=== PATIENT | female | born 1965 | race African-American/Black ===

== ENCOUNTER 2017-03-27 15:33 | Emergency (ER) | payer BC, OTHER, SELFPAY ==
[2017-03-27] MEDS ORDERED: Azithromycin 250 MG TAB ONE (17:09)
[2017-03-27] MEDS ORDERED: predniSONE 20 MG TAB ONE (17:09)
== END 2017-03-27 17:45 | disposition home or self-care (01) ==
LOC: ERS 15:33
DX: J45.901 Unspecified asthma with (acute) exacerbation (principal); E78.5 Hyperlipidemia, unspecified; E11.9 Type 2 diabetes mellitus without complications; I10 Essential (primary) hypertension; F41.9 Anxiety disorder, unspecified
CPT/HCPCS: 94640; J7506; J7620

== ENCOUNTER 2017-07-20 08:39 | Outpatient (CLI) | payer BC | END 2017-07-20 08:40 | disposition home or self-care (01) | LOC: BICMAMMO 08:39 | PROVIDERS: ATTEND Family Medicine | DX: Z12.31 Encounter for screening mammogram for malignant neoplasm of breast (principal) | CPT/HCPCS: 77063; 77067 ==

== ENCOUNTER 2017-08-19 08:12 | Day surgery (SDC) | payer BC ==
[2017-08-19] MEDS ORDERED: Midazolam HCl 2 mg/2 ml Vial ONE ×2 (08:52→09:05)
[2017-08-19] MEDS ORDERED: Fentanyl 100 MCG/2 ML VIAL ONE ×3 (08:52→11:10)
[2017-08-19] MEDS ORDERED: Levofloxacin 500 mg/D5W 100 ml Premix Bag ONE (09:06)
[2017-08-19] MEDS ORDERED: Clindamycin/D5W 900 mg/50 ml Premix Bag ONE ×2 (09:06→10:23)
[2017-08-19 09:47] LABS: Anion Gap 16 mmol/L (10-20); BUN (Urea Nitrogen) 13 mg/dL (9.8-20.1); Calc. Creatinine Clearance 0 mL/min (70-130); Calcium 8.9 mg/dL (7.8-10.44); Carbon Dioxide 23 mmol/L (22-29); Chloride 102 mmol/L (98-107); Estimated GFR-MDRD Greater than 90; Glucose 167 mg/dL (70-105); Potassium 3.4 mmol/L (3.5-5.1); Sodium 138 mmol/L (136-145)
[2017-08-19] MEDS ORDERED: Thrombin 5000 UNITS/5 ML VIAL ONE (10:06)
[2017-08-19] MEDS ORDERED: PHENYLEPHRINE-NS 100 MCG/ML 10 ML SYRINGE ONE ×2 (10:08→11:34)
[2017-08-19] MEDS ORDERED: Ondansetron HCl/PF 4 MG/2 ML Vial ONE (10:08)
[2017-08-19] MEDS ORDERED: PROPOFOL 200 MG/20 ML VIAL ONE (10:08)
[2017-08-19] MEDS ORDERED: Lidocaine 1% PF 5 ML VIAL ONE (10:08)
[2017-08-19] MEDS ORDERED: Glycopyrrolate 0.2 MG/ML 5 ML SYRINGE ONE (10:08)
[2017-08-19] MEDS ORDERED: HYDROmorphone 0.5 MG/0.5 ML SYRINGE ONE (11:45)
--- NOTE | 2017-08-19 12:07 | OP ---
DATE OF PROCEDURE: 08/19/2017 SURGEON: [place] Trivedi M.D. DOUBLE BOTTOM DRIVER: Jm Ignacio PA-C INDICATION: Pain. DIAGNOSIS: Cervical radiculopathy. PROCEDURE: Anterior cervical discectomy and fusion C6-7. ANESTHESIA: General. TECHNIQUE: The patient was brought into the operating room and placed under general anesthesia. She was placed on the table in supine position. A transverse incision was planned over the lateral aspe ct of the neck on the right. After prepping and draping and after an appropriate operative pause, th e incision was created. The underlying platysma muscle identified and incised. A blunt tissue plane anterior to the sternocleidomastoid muscle was used to gain access to the prevertebral space. A katie f-retaining retractor was placed in the wound for optimal exposure. After confirming the appropriate levels, an annulotomy was performed at the C6-7 disk space. All disk material as well as anterior a nd posterior osteophytes were removed. After decompressing the segment, a 6 mm lordotic PEEK cage pa cked with allograft and autograft material was placed in the interbody space. An anterior cervical p late was then fashioned to the front of the spine and secured with a total of four screws. Midline a nd lateral structures were then inspected and found to be free from significant trauma. The wound wa s irrigated. Hemostasis was maintained throughout. The wound was then closed in anatomic layers and a pressure dressing was applied. There were no known procedural complications.
[2017-08-19] MEDS ORDERED: Promethazine HCl 25 MG/ML VIAL ONE ×2 (12:36→13:52)
[2017-08-19] MEDS ORDERED: HYDROcodone/Acetaminophen 5/325 mg Tablet ONE (13:52)
== END 2017-08-19 15:40 | disposition home or self-care (01) ==
LOC: SDC 08:12
PROVIDERS: ATTEND Neurological Surgery
PROC: 0RT30ZZ Resection of Cervical Vertebral Disc, Open Approach (ICD-10-PCS; principal; 2017-08-19)
PROC: 0RG10A0 Fusion of Cervical Vertebral Joint with Interbody Fusion Device, Anterior Approach, Anterior Column, Open Approach (ICD-10-PCS; principal; 2017-08-19)
DX: M54.12 Radiculopathy, cervical region (principal); Z88.0 Allergy status to penicillin; Z88.6 Allergy status to analgesic agent; Z79.899 Other long term (current) drug therapy; Z79.84 Long term (current) use of oral hypoglycemic drugs
CPT/HCPCS: 36416; 76001; 80048; 93005; 93010; 96374; C1713; C1776; J1170; J1956; J2001; J2250; J2405; J2550; J2704; J3010; J3490

== ENCOUNTER 2017-10-21 14:19 | Outpatient (CLI) | payer OTHER | END 2017-10-21 14:20 | disposition home or self-care (01) | LOC: BICRAD 14:19 | PROVIDERS: ATTEND Neurological Surgery | DX: M47.22 Other spondylosis with radiculopathy, cervical region (principal); Z98.890 Other specified postprocedural states | CPT/HCPCS: 72040 ==

== ENCOUNTER 2018-02-08 13:06 | Outpatient (CLI) | payer OTHER ==
--- NOTE | 2018-02-08 14:48 | RAD ---
CHEST PA AND LATERAL: History: 52-year-old female with history of severe persistent asthma with exacerbation, cough for four weeks. Comparison: 10-09-17 FINDINGS: Anterior cervical fusion changes lower cervical spine. Right hemidiaphragm elevation, stable. No conf luent pneumonia, overt edema, or pleural effusion. IMPRESSION: No acute intrathoracic disease. Stable right hemidiaphragm elevation. No evidence for pneumonia. POS: SAE
== END 2018-02-08 13:07 | disposition home or self-care (01) ==
LOC: BICRAD 13:06
DX: J45.51 Severe persistent asthma with (acute) exacerbation (principal); Q79.1 Other congenital malformations of diaphragm
CPT/HCPCS: 71046

== ENCOUNTER 2018-05-16 16:44 | Emergency (ER) | payer OTHER, SELFPAY ==
[~2018-05-16 16:44] MED LIST: ISOVUE-370 76%-LOCM 1 ML ONE
[2018-05-16] MEDS ORDERED: Morphine 4 MG/ML VIAL ONE (18:53)
[2018-05-16] MEDS ORDERED: Ondansetron PF 4 MG/2 ML Vial ONE (18:53)
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
== END 2018-05-16 19:57 | disposition home or self-care (01) ==
LOC: ERS 16:44
DX: M54.2 Cervicalgia (principal); E11.9 Type 2 diabetes mellitus without complications; F41.9 Anxiety disorder, unspecified; J45.909 Unspecified asthma, uncomplicated; I10 Essential (primary) hypertension; Z79.84 Long term (current) use of oral hypoglycemic drugs; Z79.899 Other long term (current) drug therapy; V89.0XXA Person injured in unspecified motor-vehicle accident, nontraffic, initial encounter
CPT/HCPCS: 70450; 70498; 96374; 96375; J2270; J2405; Q9966

== ENCOUNTER 2018-08-28 16:16 | Emergency (ER) | payer SELFPAY ==
--- NOTE | 2018-08-28 16:55 | RAD ---
THREE VIEWS RIGHT WRIST: Comparison: None. History: Right wrist pain. FINDINGS: Three views of the right wrist shows no evidence of acute fracture or dislocation. Mild dorsal soft t issue swelling is seen. IMPRESSION: No evidence of acute osseous abnormality. POS: C
[2018-08-28] MEDS ORDERED: Acetaminophen 325 MG TAB ONE (17:46)
--- NOTE | 2018-08-28 18:32 | RAD ---
FOUR VIEWS RIGHT ELBOW: Comparison: None. History: Fall with elbow pain. FINDINGS: Four views of the right elbow shows no evidence of acute fracture or dislocation. No degenerative madeline nges are seen. No elbow effusion is seen. IMPRESSION: Unremarkable exam. POS: C
== END 2018-08-28 18:57 | disposition home or self-care (01) ==
LOC: ERS 16:16
DX: M25.432 Effusion, left wrist (principal); M25.531 Pain in right wrist; E78.5 Hyperlipidemia, unspecified; I10 Essential (primary) hypertension; J45.909 Unspecified asthma, uncomplicated; F41.9 Anxiety disorder, unspecified; E11.9 Type 2 diabetes mellitus without complications; Z79.51 Long term (current) use of inhaled steroids; Z79.899 Other long term (current) drug therapy; W19.XXXA Unspecified fall, initial encounter

== ENCOUNTER 2019-02-11 14:28 | Emergency (ER) | payer OTHER, SELFPAY ==
--- NOTE | 2019-02-11 15:12 | RAD ---
EXAM: XR Knee Lt 4 View STANDARD PROVIDED CLINICAL HISTORY: Pain FINDINGS: There is no evidence for fracture or other acute osseous abnormality. Alignment appears anatomic. Mercedes nt spaces appear preserved. IMPRESSION: No evidence for an acute osseous abnormality. If there is persistent clinical concern, conservative m anagement and follow-up imaging advised.
[2019-02-11 16:09] LABS: Bilirubin Negative (Negative); Blood, Urine Negative (Negative); Clarity Clear (Clear); Glucose, Urine (Dipstick) Normal (Negative); Leukocyte Negative Leu/uL (Negative); Nitrite Negative (Negative); Protein, Urine (Dipstick) Negative (Neg-Trace); Urobilinogen Normal mg/dL (Less than 2)
== END 2019-02-11 16:37 | disposition home or self-care (01) ==
LOC: ERS 14:28
DX: M25.562 Pain in left knee (principal); R30.0 Dysuria; F41.9 Anxiety disorder, unspecified; E11.9 Type 2 diabetes mellitus without complications; E78.5 Hyperlipidemia, unspecified; I10 Essential (primary) hypertension; J45.909 Unspecified asthma, uncomplicated; Z79.899 Other long term (current) drug therapy; Z79.84 Long term (current) use of oral hypoglycemic drugs; Z87.891 Personal history of nicotine dependence
CPT/HCPCS: 81003

== ENCOUNTER 2019-03-20 21:12 | Emergency (ER) | payer SELFPAY ==
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
== END 2019-03-20 23:22 | disposition home or self-care (01) ==
LOC: ERS 21:12
DX: S39.012A Strain of muscle, fascia and tendon of lower back, initial encounter (principal); S16.1XXA Strain of muscle, fascia and tendon at neck level, initial encounter; G43.909 Migraine, unspecified, not intractable, without status migrainosus; E11.9 Type 2 diabetes mellitus without complications; E78.5 Hyperlipidemia, unspecified; I10 Essential (primary) hypertension; J45.909 Unspecified asthma, uncomplicated; F41.9 Anxiety disorder, unspecified; Z87.891 Personal history of nicotine dependence; Z79.51 Long term (current) use of inhaled steroids; Z79.84 Long term (current) use of oral hypoglycemic drugs; Z79.899 Other long term (current) drug therapy; V48.5XXA Car driver injured in noncollision transport accident in traffic accident, initial encounter
CPT/HCPCS: 72040; 72100

== ENCOUNTER 2019-04-18 13:36 | Emergency (ER) | payer SELFPAY ==
[2019-04-18 15:37] LABS: ALT (SGPT) 41 U/L (8-55); AST (SGOT) 37 U/L (5-34); Albumin 4.4 g/dL (3.5-5.0); Alkaline Phosphatase 50 U/L (40-110); Anion Gap 12 mmol/L (10-20); BUN (Urea Nitrogen) 9 mg/dL (9.8-20.1); Bilirubin, Total 0.4 mg/dL (0.2-1.2); Calc. Creatinine Clearance 0 mL/min (70-130); Carbon Dioxide 29 mmol/L (22-29); Chloride 103 mmol/L (98-107); Estimated GFR-MDRD Greater than 90; Globulin 2.5 g/dL (2.4-3.5); Glucose 103 mg/dL (70-105); Lipase 12 U/L (8-78); Potassium 3.9 mmol/L (3.5-5.1); Protein, Total 6.9 g/dL (6.0-8.3); Sodium 140 mmol/L (136-145)
[2019-04-18 15:50] LABS: Hemoglobin 13.1 g/dL (12.0-16.0); Mean Corpuscular HGB CONC 33.9 g/dL (32.0-36.0); Mean Corpuscular Hemoglobin 32.1 pg (27.0-31.0); Mean Corpuscular Volume 94.7 fL (78.0-98.0); Mean Platelet Volume 8.6 fL (7.4-10.4); Platelet Count 231 thou/uL (130-400); RBC Distribution Width 11.9 % (11.5-14.5); Red Blood Cell (RBC) Count 4.08 mill/uL (4.20-5.40); White Blood Cell (WBC) Count 6.2 thou/uL (4.8-10.8)
[2019-04-18 15:51] LABS: Bilirubin Negative (Negative); Blood, Urine Negative (Negative); Clarity Clear (Clear); Glucose, Urine (Dipstick) Normal (Negative); Leukocyte Negative Leu/uL (Negative); Nitrite Negative (Negative); Protein, Urine (Dipstick) Negative (Neg-Trace); Urobilinogen Normal mg/dL (Less than 2)
[2019-04-18 16:04] LABS: Eosinophils 2 % (0-10); Lymphocytes 43 % (21-51); MDiff Complete? YES; Monocytes 4 % (0-10); Neutrophil 38 % (42-75); Platelet Morphology Comment Appears Adequate; RBC Morphology Normal; Reactive Lymphocytes 12 % (0-10)
== END 2019-04-18 16:15 | disposition home or self-care (01) ==
LOC: ERS 13:36
DX: J11.1 Influenza due to unidentified influenza virus with other respiratory manifestations (principal); G43.909 Migraine, unspecified, not intractable, without status migrainosus; I10 Essential (primary) hypertension; E11.9 Type 2 diabetes mellitus without complications; E78.5 Hyperlipidemia, unspecified; J45.909 Unspecified asthma, uncomplicated; F41.9 Anxiety disorder, unspecified; Z87.891 Personal history of nicotine dependence
CPT/HCPCS: 36415; 80053; 81003; 83690; 85025; 87081; 87430; 87804; 99281

== ENCOUNTER 2019-04-24 19:08 | Emergency (ER) | payer SELFPAY ==
[2019-04-24] MEDS ORDERED: HYDROcodone/Acetaminophen 5/325 mg Tablet ONE (19:48)
--- NOTE | 2019-04-24 20:38 | RAD ---
EXAM: RIGHT HAND THREE VIEWS: 04/24/19 HISTORY: Pain following injury from a fall. Arthrosis and degenerative change of the hand. No evidence for acute fracture or dislocation. IMPRESSION: Arthrosis and degenerative change without acute fracture or dislocation. POS: RRE
--- NOTE | 2019-04-24 20:48 | RAD ---
EXAM: RIGHT HIP TWO VIEWS: 04/24/19 HISTORY: Injury from a fall. FINDINGS/IMPRESSION: Mild degenerative changes and osteoarthrosis changes of the right hip joint without fracture, disloca tion, or other acute process. POS: RRE
--- NOTE | 2019-04-24 20:49 | RAD ---
EXAM: LEFT HAND THREE VIEWS: 04/23/09 HISTORY: Injury from a fall. FINDINGS/IMPRESSION: Mild osteoarthrosis and degenerative change without fracture, dislocation, or other acute process. POS: RRE
--- NOTE | 2019-04-24 20:50 | RAD ---
EXAM: LEFT KNEE FOUR VIEWS: 04/24/19 HISTORY: Pain following injury from a fall. FINDINGS/IMPRESSION: No fracture, dislocation, or other significant acute osseous process. POS: RRE
--- NOTE | 2019-04-24 20:52 | RAD ---
EXAM: RIGHT ELBOW FOUR VIEWS: 04/24/19 HISTORY: Pain following injury from a fall. FINDINGS/IMPRESSION: No fracture, dislocation, or other acute osseous process. Small triceps olecranon enthesophyte. POS: RRE
--- NOTE | 2019-04-24 20:54 | RAD ---
EXAM: LEFT ULNA FOUR VIEWS: 04/24/19 HISTORY: Pain following injury from a fall. FINDINGS/IMPRESSION: No fracture or dislocation or joint effusion. Small triceps olecranon enthesophyte. POS: RRE
== END 2019-04-24 21:29 | disposition home or self-care (01) ==
LOC: ERS 19:08
DX: M25.551 Pain in right hip (principal); M25.562 Pain in left knee; M79.642 Pain in left hand; M79.641 Pain in right hand; M25.522 Pain in left elbow; M25.521 Pain in right elbow; G43.909 Migraine, unspecified, not intractable, without status migrainosus; E11.9 Type 2 diabetes mellitus without complications; I10 Essential (primary) hypertension; E78.5 Hyperlipidemia, unspecified; J45.909 Unspecified asthma, uncomplicated; F41.9 Anxiety disorder, unspecified; Z87.891 Personal history of nicotine dependence; W18.40XA Slipping, tripping and stumbling without falling, unspecified, initial encounter

== ENCOUNTER 2020-03-20 06:58 | Outpatient (CLI) | payer OTHER ==
[2020-03-20 12:21] LABS: Anion Gap 16 mmol/L (10-20); BUN (Urea Nitrogen) 10 mg/dL (9.8-20.1); Calc. Creatinine Clearance 0 mL/min (70-130); Carbon Dioxide 27 mmol/L (22-29); Chloride 103 mmol/L (98-107); Glucose 125 mg/dL (70-105); Potassium 3.5 mmol/L (3.5-5.1); Sodium 142 mmol/L (136-145)
--- NOTE | 2020-03-20 17:09 | EKG ---
Test Reason : Blood Pressure : / mmHG Vent. Rate : 073 BPM Atrial Rate : 073 BPM P-R Int : 212 ms QRS Dur : 102 ms QT Int : 406 ms P-R-T Axes : 069 -21 024 degrees QTc Int : 447 ms Sinus rhythm with 1st degree A-V block Low voltage QRS Cannot rule out Anterior infarct , age undetermined Abnormal ECG No previous ECGs available Confirmed by DR. Arturo GIBBS ([id number]) on 03/20/2020 5:09:20 PM Referred By: AUTUMN Confirmed By:DR. Arturo GIBBS
[2020-03-20 18:27] LABS: SARS-CoV-2 PCR by NAA Not Detected (NotDetected)
== END 2020-03-20 06:59 | disposition home or self-care (01) ==
LOC: LABBT 06:58
PROVIDERS: ATTEND Neurological Surgery
DX: Z01.818 Encounter for other preprocedural examination (principal); Z20.822 Contact with and (suspected) exposure to COVID-19; M54.16 Radiculopathy, lumbar region
CPT/HCPCS: 80048; 87635; 93005; 93010; U0003; U0005

== ENCOUNTER 2020-03-24 05:47 | Day surgery (SDC) | payer OTHER ==
[2020-03-24] MEDS ORDERED: Thrombin 5000 UNITS/5 ML VIAL ONE (06:37)
[2020-03-24] MEDS ORDERED: Bupivacaine PF 0.5% 30 ML VIAL ONE (06:37)
[2020-03-24] MEDS ORDERED: EPINEPHrine 1 MG/ML AMP ONE (06:37)
[2020-03-24] MEDS ORDERED: Famotidine/PF 20 mg/2ml Vial ONE (06:48)
[2020-03-24] MEDS ORDERED: Fentanyl 100 MCG/2 ML VIAL ONE (06:48)
[2020-03-24] MEDS ORDERED: Clindamycin/D5W 900 mg/50 ml Premix Bag ONE (06:58)
[2020-03-24] MEDS ORDERED: Midazolam HCl 2 mg/2 ml Vial ONE (06:58)
[2020-03-24] MEDS ORDERED: Levofloxacin 500 mg/D5W 100 ml Premix Bag ONE (06:58)
[2020-03-24] MEDS ORDERED: Dexamethasone 20 MG/5 ML VIAL ONE (09:18)
[2020-03-24] MEDS ORDERED: Metoclopramide HCl 10 MG/2 ML VIAL ONE (09:18)
[2020-03-24] MEDS ORDERED: PHENYLEPHRINE-NS 100 MCG/ML 10 ML SYRINGE ONE (09:18)
[2020-03-24] MEDS ORDERED: Glycopyrrolate 0.2 MG/ML 5 ML SYRINGE ONE (09:18)
[2020-03-24] MEDS ORDERED: Ondansetron PF 4 MG/2 ML Vial ONE (09:18)
[2020-03-24] MEDS ORDERED: PROPOFOL 200 MG/20 ML VIAL ONE (09:18)
[2020-03-24] MEDS ORDERED: Rocuronium Bromide 10 MG/ML (10ML VIAL) ONE (09:18)
[2020-03-24] MEDS ORDERED: Lidocaine 1% PF 5 ML VIAL ONE (09:18)
[2020-03-24] MEDS ORDERED: Morphine 2 MG/ML VIAL ONE (09:37)
[2020-03-24] MEDS ORDERED: Promethazine HCl 25 MG/ML VIAL ONE (09:37)
[2020-03-24] MEDS ORDERED: HYDROcodone/Acetaminophen 5/325 mg Tablet ONE (10:56)
== END 2020-03-24 11:26 | disposition home or self-care (01) ==
LOC: SDC 05:47
PROVIDERS: ATTEND Neurological Surgery
PROC: 00NY0ZZ Release Lumbar Spinal Cord, Open Approach (ICD-10-PCS; principal; 2020-03-24)
DX: M48.062 Spinal stenosis, lumbar region with neurogenic claudication (principal); M54.16 Radiculopathy, lumbar region; Z79.84 Long term (current) use of oral hypoglycemic drugs; Z79.899 Other long term (current) drug therapy; Z88.0 Allergy status to penicillin; Z88.6 Allergy status to analgesic agent
CPT/HCPCS: 76000; J0171; J1100; J1956; J2250; J2270; J2405; J2550; J2704; J2765; J3010; J3490; S0020; S0028

== ENCOUNTER 2020-10-14 07:30 | Outpatient (CLI) | payer OTHER | END 2020-10-14 07:31 | disposition home or self-care (01) | LOC: BICULT 07:30 | PROVIDERS: ATTEND Internal Medicine Gastroenterology | DX: R94.5 Abnormal results of liver function studies (principal); R93.2 Abnormal findings on diagnostic imaging of liver and biliary tract | CPT/HCPCS: 93975 ==

== ENCOUNTER 2020-12-05 17:21 | Emergency (ER) | payer OTHER ==
[~2020-12-05 17:21] MED LIST changes: -ISOVUE-370 76%-LOCM 1 ML ONE; +Iopamidol-370 76% 500 ML 1 ML ONE
[2020-12-05 18:02] LABS: #Monocytes 1.3 thou/uL (0.11-0.59); #Neutrophils 10.6 thou/uL (1.40-6.50); %Basophils 0.3 % (0.0-1.0); %Eosinophils 0.1 % (0.0-10.0); %Lymphocytes 29.6 % (21.0-51.0); %Monocytes 7.6 % (0.0-10.0); %Neutrophils 62.4 % (42.0-75.0); Hemoglobin 12.8 g/dL (12.0-16.0); Mean Corpuscular HGB CONC 32.5 g/dL (32.0-36.0); Mean Corpuscular Hemoglobin 30.5 pg (27.0-31.0); Mean Corpuscular Volume 93.7 fL (78.0-98.0); Mean Platelet Volume 7.8 fL (7.4-10.4); Platelet Count 226 thou/uL (130-400); RBC Distribution Width 12.1 % (11.5-14.5); Red Blood Cell (RBC) Count 4.21 mill/uL (4.20-5.40)
[2020-12-05 18:27] LABS: ALT (SGPT) 47 U/L (8-55); AST (SGOT) 22 U/L (5-34); Albumin 4.2 g/dL (3.5-5.0); Alkaline Phosphatase 56 U/L (40-110); Anion Gap 16 mmol/L (10-20); BUN (Urea Nitrogen) 11 mg/dL (9.8-20.1); Bilirubin, Total 0.4 mg/dL (0.2-1.2); Calc. Creatinine Clearance 0 mL/min (70-130); Calcium 9.9 mg/dL (7.8-10.44); Carbon Dioxide 30 mmol/L (22-29); Chloride 100 mmol/L (98-107); Globulin 2.8 g/dL (2.4-3.5); Glucose 153 mg/dL (70-105); Sodium 142 mmol/L (136-145)
[2020-12-05] MEDS ORDERED: Metoclopramide 10 MG/10 ML UDCUP ONE (18:43)
[2020-12-05] MEDS ORDERED: diphenhydrAMINE 50 MG/ML VIAL ONE (18:43)
[2020-12-05] MEDS ORDERED: Metoclopramide HCl 10 MG/2 ML VIAL ONE (18:44)
== END 2020-12-05 21:07 | disposition home or self-care (01) ==
LOC: ERS 17:21
DX: U07.1 COVID-19 (principal); J45.901 Unspecified asthma with (acute) exacerbation; G43.909 Migraine, unspecified, not intractable, without status migrainosus; E11.9 Type 2 diabetes mellitus without complications; E78.5 Hyperlipidemia, unspecified; I10 Essential (primary) hypertension; Z87.891 Personal history of nicotine dependence; Z79.84 Long term (current) use of oral hypoglycemic drugs; Z79.891 Long term (current) use of opiate analgesic; Z79.899 Other long term (current) drug therapy
CPT/HCPCS: 36415; 71045; 71275; 80053; 83880; 84484; 85025; 93005; 96374; 96375; J1200; J2765; Q9967

== ENCOUNTER 2021-01-08 10:03 | Outpatient (CLI) | payer OTHER | END 2021-01-08 10:04 | disposition home or self-care (01) | LOC: BICRAD 10:03 | PROVIDERS: ATTEND Nurse Practitioner Family | DX: M25.571 Pain in right ankle and joints of right foot (principal) ==

== ENCOUNTER 2022-10-06 12:32 | Outpatient (CLI) | payer OTHER ==
[~2022-10-06 12:32] MED LIST changes: -Iopamidol-370 76% 500 ML 1 ML ONE; +Magnevist 469MG/ML 20 ML VIAL ONE
== END 2022-10-06 12:33 | disposition home or self-care (01) ==
LOC: BICMRI 12:32
PROVIDERS: ATTEND Psychiatry & Neurology Neurology
DX: R51.9 Headache, unspecified (principal); R90.82 White matter disease, unspecified
CPT/HCPCS: 70553; A9579

== ENCOUNTER 2022-11-03 13:38 | Outpatient (CLI) | payer OTHER | END 2022-11-03 13:39 | disposition home or self-care (01) | LOC: BICMAMMO 13:38 | PROVIDERS: ATTEND Family Medicine | DX: Z12.31 Encounter for screening mammogram for malignant neoplasm of breast (principal) | CPT/HCPCS: 77063; 77067 ==

== ENCOUNTER 2022-11-04 07:17 | Day surgery (SDC) | payer OTHER ==
[2022-11-04 08:02] VITALS: BP 129/83; TEMP 98
[2022-11-04 10:19] LABS: CSF, Glucose 70 mg/dl (40-70); CSF, Protein 49 mg/dL (15-40)
[2022-11-04 10:28] LABS: CSF Source CSF; Clarity Clear (Clear); Tube # 4
== END 2022-11-04 10:00 | disposition home or self-care (01) ==
LOC: RAD 07:17
PROVIDERS: ATTEND Psychiatry & Neurology Neurology
DX: G37.9 Demyelinating disease of central nervous system, unspecified (principal)
CPT/HCPCS: 62270; 82040; 82042; 82784; 82945; 83873; 83916; 84157; 86592; 87529; 87899; 89051

== ENCOUNTER 2023-01-29 15:00 | Emergency (ER) | payer OTHER, SELFPAY ==
[2023-01-29] MEDS ORDERED: Aspirin Chewable 81 MG TAB ONE (16:38)
[2023-01-29] MEDS ORDERED: HYDROcodone/Acetaminophen 5/325 mg Tablet ONE (16:44)
[2023-01-29 17:02] LABS: #Eosinphils 0.1 thou/uL (0.0-0.7); #Monocytes 0.9 thou/uL (0.11-0.59); #Neutrophils 7.1 thou/uL (1.40-6.50); %Basophils 0.4 % (0.0-1.0); %Lymphocytes 28.2 % (21.0-51.0); %Monocytes 7.6 % (0.0-10.0); %Neutrophils 62.5 % (42.0-75.0); Hematocrit 39.9 % (36.0-47.0); Hemoglobin 12.9 g/dL (12.0-16.0); Mean Corpuscular HGB CONC 32.3 g/dL (32.0-36.0); Mean Corpuscular Hemoglobin 30.9 pg (27.0-31.0); Mean Corpuscular Volume 95.7 fl (78.0-98.0); Mean Platelet Volume 9.7 fL (7.4-10.4); Platelet Count 249 10x3/uL (130-400); RBC Distribution Width 12.1 % (11.5-14.5); Red Blood Cell (RBC) Count 4.17 mill/uL (4.20-5.40); White Blood Cell (WBC) Count 11.4 10x3/uL (4.8-10.8)
[2023-01-29 17:25] LABS: ALT (SGPT) 10 U/L (8-55); AST (SGOT) 9 U/L (5-34); Albumin 4.4 g/dL (3.5-5.0); Alkaline Phosphatase 48 U/L (40-110); Anion Gap 15 mmol/L (10-20); BUN (Urea Nitrogen) 8 mg/dL (9.8-20.1); Bilirubin, Total 0.4 mg/dL (0.2-1.2); Calc. Creatinine Clearance 0 mL/min (70-130); Calcium 9.6 mg/dL (7.8-10.44); Carbon Dioxide 22 mmol/L (22-29); Chloride 103 mmol/L (98-107); Estimated GFR 87; Globulin 3.2 g/dL (2.4-3.5); Glucose 135 mg/dL (70-105); Potassium 3.6 mmol/L (3.5-5.1); Protein, Total 7.6 g/dL (6.0-8.3); Sodium 136 mmol/L (136-145)
[2023-01-29 17:28] LABS: Troponin I Less than 0.010 ng/mL (< 0.028)
== END 2023-01-29 19:07 | disposition home or self-care (01) ==
LOC: ERS 15:00
DX: M75.22 Bicipital tendinitis, left shoulder (principal); E11.9 Type 2 diabetes mellitus without complications; I10 Essential (primary) hypertension
CPT/HCPCS: 36415; 71045; 80053; 84484; 85025; 93005

== ENCOUNTER 2023-04-05 11:02 | Inpatient (IN) | payer OTHER ==
[~2023-04-05 11:02] MED LIST changes: +Iopamidol-370 76% 500 ML MDV (1 ML CHARGE) ONE; -Magnevist 469MG/ML 20 ML VIAL ONE
[2023-04-05] MEDS ORDERED: Ondansetron PF 4 MG/2 ML Vial ONE ×2 (11:27→15:58)
[2023-04-05 11:49] LABS: #Monocytes 1.2 thou/uL (0.11-0.59); #Neutrophils 6.5 thou/uL (1.40-6.50); %Basophils 0.3 % (0.0-1.0); %Lymphocytes 20.5 % (21.0-51.0); %Monocytes 12.5 % (0.0-10.0); %Neutrophils 66.5 % (42.0-75.0); Hematocrit 44.6 % (36.0-47.0); Mean Corpuscular HGB CONC 33.6 g/dL (32.0-36.0); Mean Corpuscular Hemoglobin 30.1 pg (27.0-31.0); Mean Corpuscular Volume 89.6 fl (78.0-98.0); Mean Platelet Volume 9.4 fL (7.4-10.4); Platelet Count 350 10x3/uL (130-400); RBC Distribution Width 13.2 % (11.5-14.5); Red Blood Cell (RBC) Count 4.98 mill/uL (4.20-5.40); White Blood Cell (WBC) Count 9.7 10x3/uL (4.8-10.8)
[2023-04-05 12:12] LABS: ALT (SGPT) 16 U/L (8-55); AST (SGOT) 15 U/L (5-34); Albumin 5.3 g/dL (3.5-5.0); Alkaline Phosphatase 64 U/L (40-110); Anion Gap 20 mmol/L (10-20); BUN (Urea Nitrogen) 19 mg/dL (9.8-20.1); Bilirubin, Total 0.7 mg/dL (0.2-1.2); Calc. Creatinine Clearance 0 mL/min (70-130); Calcium 12.2 mg/dL (7.8-10.44); Carbon Dioxide 28 mmol/L (22-29); Chloride 91 mmol/L (98-107); Estimated GFR 59; Globulin 3.9 g/dL (2.4-3.5); Glucose 152 mg/dL (70-105); Lipase Less than 4 U/L (8-78); Potassium 4.1 mmol/L (3.5-5.1); Protein, Total 9.2 g/dL (6.0-8.3); Sodium 135 mmol/L (136-145)
[2023-04-05] MEDS ORDERED: Dicyclomine 20 MG TAB ONE (12:15)
[2023-04-05] MEDS ORDERED: Metoclopramide HCl 10 MG (2 mL) VIAL ONE (12:16)
[2023-04-05 12:27] LABS: SARS-CoV-2 NAA Rapid Test Not Detected (NotDetected)
[2023-04-05 12:30] LABS: Bacteria/HPF 2+ HPF (None Seen); Bilirubin 1+ (Negative); Blood, Urine Negative (Negative); CAUTI Indications for Culture Dysuria,urgency,freq; Glucose, Urine (Dipstick) >=1000 mg/dL (Negative); Ketone, Urine 20 mg/dL (Negative); Leukocyte Negative Leu/uL (Negative); Nitrite Negative (Negative); Protein, Urine (Dipstick) 100 mg/dL (Neg-Trace); Specific Gravity, Urine 1.022 (1.002-1.036); Squamous Epithelial 21-50 HPF (0-3); pH, Urine 5.5 (5.0-9.0)
[2023-04-05 12:31] LABS: Clarity Cloudy (Clear)
[2023-04-05 12:32] LABS: Urine Culture Reflex No No
[2023-04-05] MEDS ORDERED: Glucagon 1 MG/ML KIT IM PRN (13:51)
[2023-04-05] MEDS ORDERED: HumaLOG 300 UNITS/3 ML VIAL SC PRN (13:51)
[2023-04-05] MEDS ORDERED: Dextrose 50% Abboject 50 ML SYRINGE SLOW IVP PRN (13:51)
[2023-04-05] MEDS ORDERED: Dextrose 5% in Water 1,000 ML IV PRN (13:51)
[2023-04-05] MEDS: Lactulose 20 GM (30 mL) UDCUP PO SCH (15:00)
[2023-04-05] MEDS ORDERED: cefTRIAXone (ROCEPHIN) 1 GM VIAL ONE (15:27)
[2023-04-05] MEDS ORDERED: Morphine 4 MG/ML VIAL ONE (15:53)
[2023-04-05] MEDS ORDERED: Benzocaine 20% Spray 60 ML CAN ONE (16:34)
[2023-04-05] MEDS: cefTRIAXone\\ROCEPHIN 1 GM in Sodium Chloride 0.9% 100 ML IVPB SCH (18:57)
[2023-04-05] MEDS: Sodium Chloride 0.9% 1,000 ML IV SCH (19:00)
[2023-04-05] MEDS ORDERED: Famotidine/PF 20 mg/2ml Vial ONE (22:21)
[2023-04-05] MEDS ORDERED: LORazepam 2 MG/ML SYR.(CARPUJECT) ONE (22:22)
[2023-04-05 22:26] VITALS: BMI 36.8
[2023-04-05] MEDS: Famotidine/PF 20 mg/2ml Vial SLOW IVP SCH (22:28)
[2023-04-05] MEDS: Lorazepam 2 MG/ML VIAL SLOW IVP PRN (22:28)
[2023-04-06 04:15] LABS: #Monocytes 1.4 thou/uL (0.11-0.59); #Neutrophils 5.8 thou/uL (1.40-6.50); %Basophils 0.1 % (0.0-1.0); %Eosinophils 0.2 % (0.0-10.0); %Lymphocytes 24.3 % (21.0-51.0); %Monocytes 14.2 % (0.0-10.0); Hematocrit 41.6 % (36.0-47.0); Hemoglobin 13.3 g/dL (12.0-16.0); Mean Corpuscular Hemoglobin 29.9 pg (27.0-31.0); Mean Platelet Volume 9.4 fL (7.4-10.4); Platelet Count 307 10x3/uL (130-400); RBC Distribution Width 13.5 % (11.5-14.5); Red Blood Cell (RBC) Count 4.45 mill/uL (4.20-5.40); White Blood Cell (WBC) Count 9.6 10x3/uL (4.8-10.8)
[2023-04-06 04:27] LABS: Mean Corpuscular Volume 93.5 fl (78.0-98.0)
[2023-04-06] MEDS ORDERED: MD-Gastroview 120 ML BOT ONE ×2 (06:36→09:42)
[2023-04-06 06:40] LABS: Anion Gap 18 mmol/L (10-20); BUN (Urea Nitrogen) 14 mg/dL (9.8-20.1); Calc. Creatinine Clearance 128 mL/min (70-130); Calcium 9.9 mg/dL (7.8-10.44); Carbon Dioxide 24 mmol/L (22-29); Chloride 99 mmol/L (98-107); Estimated GFR 95; Glucose 110 mg/dL (70-105); Potassium 3.8 mmol/L (3.5-5.1); Sodium 137 mmol/L (136-145)
[2023-04-06] MEDS ORDERED: Non-Formulary Item 1 EACH (Albuterol Sulfate [Proair Digihaler] 90 MCG Aer.Pw.Bas) INH PRN (07:01)
[2023-04-06] MEDS ORDERED: Albuterol 200 PUFF (6.7GM INHALER) INH PRN (07:10)
[2023-04-06] MEDS: Spironolactone 100 MG TAB PO SCH (08:37)
[2023-04-06] MEDS: Losartan 25 MG TAB PO SCH (08:37)
[2023-04-06] MEDS: dilTIAZem CD 240 MG CAP PO SCH (08:41)
[2023-04-06] MEDS ORDERED: dilTIAZem CD 240 MG CAP FS SCH (09:00)
[2023-04-06] MEDS ORDERED: DILTIAZEM HCL 240 MG PO SCH (09:00)
[2023-04-06] MEDS ORDERED: Non-Formulary Item 1 EACH (Losartan Potassium [Losartan Potassium] 50 MG Tablet) PO SCH (09:00)
[2023-04-06] MEDS: Enoxaparin 40 MG (0.4 mL) SYRINGE SC SCH (10:43)
[2023-04-06] MEDS ORDERED: Cyclobenzaprine 10 MG TAB PO PRN (10:50)
[2023-04-06] MEDS ORDERED: Morphine 2 MG/ML VIAL SLOW IVP PRN (10:52)
[2023-04-06] MEDS ORDERED: Acetaminophen 325 MG TAB PO SCH (11:00)
[2023-04-06] MEDS: Acetaminophen 500 MG TAB PO SCH (13:00)
[2023-04-06] MEDS: Magnesium 2 GM/50 ML(in water) 2 GM in Premix 1 BAG IVPB SCH (16:33)
[2023-04-06] MEDS: Ondansetron ODT 4 MG TAB PO PRN (19:18)
[2023-04-06] MEDS: traMADol HCl 50 MG TAB PO PRN (19:18)
[2023-04-06] MEDS ORDERED: Non-Formulary Item 1 EACH (Amitriptyline Hcl [Elavil] 50 MG Tab) PO SCH (21:00)
[2023-04-06] MEDS: metFORMIN XR 500 MG ER.TAB PO SCH (21:35)
[2023-04-06] MEDS: Amitriptyline HCl 25 MG TAB PO SCH (21:35)
[2023-04-07 08:34] VITALS: BP 136/85; TEMP 97.9
[2023-04-07] MEDS ORDERED: ZONISAMIDE 25 MG PO SCH (09:00)
[2023-04-07] MEDS: Zonisamide 25 MG CAP PO SCH (10:35)
== END 2023-04-07 12:20 | disposition home or self-care (01) | DRG 392 ==
LOC: ERS 11:02 → SJJU 13:11 → ERHOLD 13:11 → SJJU 04-06 07:49
PROVIDERS: ADMIT Specialist; ATTEND Specialist
DX: K59.00 Constipation, unspecified (principal); K56.699 Other intestinal obstruction unspecified as to partial versus complete obstruction; E11.9 Type 2 diabetes mellitus without complications; I10 Essential (primary) hypertension; J45.909 Unspecified asthma, uncomplicated; G43.909 Migraine, unspecified, not intractable, without status migrainosus; F41.9 Anxiety disorder, unspecified; E83.52 Hypercalcemia; Z88.0 Allergy status to penicillin; Z88.8 Allergy status to other drugs, medicaments and biological substances; Z98.890 Other specified postprocedural states; Z11.52 Encounter for screening for COVID-19
CPT/HCPCS: 36415; 36416; 74018; 74177; 74250; 80048; 80053; 81001; 83690; 85025; 87086; 93005; J0696; J1650; J2060; J2270; J2405; J2765; J3475; J3490; J7050; Q0162; Q9963; Q9967; S0028